=== PATIENT | female | born 1995 | race Caucasian/White ===

== ENCOUNTER → 2016-08-28 | Day surgery (SDC) | payer OTHER ==
[~2016-08-28] VITALS: Ht 162.6 cm; Wt 42.6 kg
[~2016-08-28] MED LIST: ASACOL HD800 MG PO; BALSALAZIDE DI750 MG PO; CIPRO250 MG PO; DELTASONE10 MG PO; ENTOCORT 3 MG3 MG PO; ENTOCORT EC3 MG PO; IMURAN50 MG PO; LIALDA1.2 GM PO; ROWASA60 ML R; TYLENOL EXTRA500 MG PO
== END | disposition disaster alternative care site (69) ==
LOC: GPOC 08-24 13:00 → GEND 07:23 → GPOC 13:00
PROC: 0DBN8ZX Excision of Sigmoid Colon, Via Natural or Artificial Opening Endoscopic, Diagnostic (ICD-10-PCS; principal; 2016-08-28)
DX: K51.90 Ulcerative colitis, unspecified, without complications (principal); Z79.899 Other long term (current) drug therapy
CPT/HCPCS: J2001; J7030